=== PATIENT | male | born 1970 | race African-American/Black ===

== ENCOUNTER 2024-02-04 14:52 | Emergency (ER) | payer OTHER ==
[~2024-02-04] VITALS: Ht 180.3 cm; Wt 65.9 kg
[~2024-02-04 14:52] MED LIST: NOCURR
[2024-02-04 15:14] VITALS: TEMP 99.7
[2024-02-04] MEDS: SODIUM CHLORIDE 0.9% 1,000 ML IV ONE (15:38)
[2024-02-04] MEDS: BACITRACIN 28 GM OINTMENT TP ONE (16:53)
[2024-02-04 16:58] LABS: BASOPHILS % (AUTO) 0.4 % (0.0-2.0); EOSINOPHILS % (AUTO) 0.3 % (1.0-6.0); HEMATOCRIT 26.9 % (41-53); HEMOGLOBIN 8.5 g/dL (13.5-17.5); LYMPHOCYTES # (AUTO) 2.1 K/uL (1.0-4.8); LYMPHOCYTES % (AUTO) 15.1 % (22.0-44.0); MEAN CORPUSCULAR HEMOGLOBIN 25.6 pg (26.0-34.0); MEAN CORPUSCULAR HGB CONC 31.4 G/dL (31.0-37.0); MEAN CORPUSCULAR VOLUME 82 fL (80-100); MONOCYTES # (AUTO) 1.1 K/uL (0.1-1.0); MONOCYTES % (AUTO) 8.1 % (2.0-9.0); NEUTROPHILS # (AUTO) 10.5 K/uL (1.8-7.7); NEUTROPHILS % (AUTO) 76.1 % (40.0-70.0); PLATELET COUNT (AUTO) 340 K/uL (150-450); RED CELL DISTRIBUTION WIDTH 17.3 % (11.5-14.5); WHITE BLOOD COUNT (AUTO) 13.8 K/uL (4.5-11.0)
[2024-02-04 17:00] VITALS: BP 131/76; PULSE 87; RESP 15; O2SAT 98
[2024-02-04 17:03] LABS: ANION GAP 9 mmol/L (8-16); CARBON DIOXIDE 26 mmol/L (22-29); CHLORIDE 100 mmol/L (98-107); CREATININE 0.81 mg/dL (0.60-1.30); GLOMERULAR FILTR. RATE CALC > 60 mL/min (>60); GLUCOSE,RANDOM 91 mg/dL (70-110); SODIUM SERUM 135 mmol/L (136-145); UREA NITROGEN, BLOOD 17 mg/dL (7-18)
[2024-02-04 17:07] LABS: TROPONIN I-HIGH SENSITIVITY 6 ng/L (<76)
[2024-02-04 17:08] LABS: ALANINE AMINOTRANSFERASE 69 U/L (12-78); ALBUMIN 2.7 g/dL (3.4-5.0); ALKALINE PHOSPHATASE 62 U/L (46-116); ASPARTATE AMINOTRANSFERASE 89 U/L (15-37); BILIRUBIN,TOTAL 0.3 mg/dL (0.1-1.0); TOTAL PROTEIN, SERUM 8.5 g/dL (6.4-8.2)
[2024-02-04 17:10] LABS: ACETAMINOPHEN < 2 mcg/mL (10-30)
[2024-02-04 17:12] LABS: LACTIC ACID 1.5 mmol/L (0.4-2.0)
[2024-02-04] MEDS ORDERED: DOXY-354 PO (17:39)
[2024-02-04] MEDS ORDERED: CEPH-558 PO (17:39)
[2024-02-04] MEDS ORDERED: BACI28.410 TP (17:39)
[2024-02-04 17:41] LABS: ALCOHOL, BLOOD (SERUM) < 3 mg/dL (0-10)
== END 2024-02-04 18:19 | disposition left against medical advice (07) ==
LOC: EMS 14:52
DX: T40.411A Poisoning by fentanyl or fentanyl analogs, accidental (unintentional), initial encounter (principal); L97.929 Non-pressure chronic ulcer of unspecified part of left lower leg with unspecified severity; F17.210 Nicotine dependence, cigarettes, uncomplicated; F10.90 Alcohol use, unspecified, uncomplicated; Y92.89 Other specified places as the place of occurrence of the external cause; Y90.9 Presence of alcohol in blood, level not specified
CPT/HCPCS: 99284; 96360; 80053; 83605; 84484; 85025; 36415; 93005; G0480; J7030; G0481